=== PATIENT | male | born 1945 | race Asian ===

== ENCOUNTER 2018-12-13 08:39 | Emergency (ER) | payer OTHER ==
[~2018-12-13] VITALS: Ht 182.9 cm; Wt 90.7 kg
--- NOTE | 2018-12-13 08:40 | NUR ---
ED Nurse Note: Pt present to ER with spouse and daughter c/o stroke like symptoms. pt aao x4 and calm and cooperative. skin clean and intact. pt present high blood pressure which is systolic over 200 mmHg as documented and per pt, he stopped taking hypertensive medication for last 3 months to try control blood pressure with exercise only. pt c/o sharp headache / and no dropping on extremites but face appeared asymetric. pt ambulatory and no slurred speach noted at this time.
[2018-12-13] MEDS ORDERED: Solu-MEDROL 125mg Inj IVP ONE (08:45)
[2018-12-13] MEDS ORDERED: Fluorescein Strips RIGHT EYE ONE ×2 (08:45→12:00)
[2018-12-13] MEDS ORDERED: Tetracaine 0.5% Opth 4ml Soln RIGHT EYE ONE (08:45)
[2018-12-13] MEDS ORDERED: LOSARTAN-HCTZ1 EAC2 ORAL (08:46)
[2018-12-13] MEDS ORDERED: METFORMIN500 MG/5 M PO (08:46)
[2018-12-13 08:50] VITALS: BP 204/100
--- NOTE | 2018-12-13 08:58 | Emergency Room Report ---
History of Present Illness General Chief Complaint: Stroke Symptoms Source: Patient Present Illness HPI Patient presents with right-sided facial weakness and numbness that began last night. He also complains about pain in the right eye and also his head. He has a history of hypertension but states he's not been taking medication for this recently. He denies any trauma. There is no fever, nausea, vomiting. The patient denies chest pain or palpitations. Off of BP meds for 2 months. Patient is also diabetic. Allergies: Coded Allergies: No Known Allergies (Unverified , 12/13/18) Patient History Past Medical History: see triage record Social History: Denies: smoking Social History Narrative with family Reviewed Nursing Documentation: PMH: Agreed; PSxH: Agreed Nursing Documentation-PMH Hx Hypertension: Yes - HYPERLIPIDEMIA Hx Diabetes: Yes Review of Systems All Other Systems: negative except mentioned in HPI Physical Exam Vital Signs Date Time Temp Pulse Resp B/P (MAP) Pulse Ox O2 Delivery O2 Flow Rate FiO2 12/13/18 08:41 98.1 72 20 204/100 99 Room Air Sp02 EP Interpretation: reviewed, normal General Appearance: well appearing, no apparent distress, GCS 15 Head: normocephalic Eyes: bilateral eye normal inspection, bilateral eye PERRL, bilateral eye EOMI ENT: moist mucus membranes Neck: supple Respiratory: lungs clear, normal breath sounds Cardiovascular #1: regular rate, rhythm Cardiovascular #2: 2+ radial (R) Gastrointestinal: normal inspection, normal bowel sounds, non tender, non- distended Musculoskeletal: back normal, gait/station normal, normal range of motion Neurologic: alert, oriented x3, motor strength/tone normal - except facial nerve, DTRs symmetric, sensory intact - except facial nerve, cerebellar normal, normal gait, speech normal, other - R facial nerve - weak and decreased sensation Psychiatric: anxious Skin: normal inspection, warm/dry Medical Decision Making Diagnostic Impression: Primary Impression: Jung's palsy Additional Impressions: HTN (hypertension) Qualified Codes: I10 - Essential (primary) hypertension Hyperglycemia Hyponatremia ER Course Patient presents with headache, right facial weakness and numbness and hypertension. Differential includes a Jung's palsy, interested cervical bleed, [place] abrasion, hypertensive urgency amongst others. Evaluation will be with EKG, CT the head and labs. Based on his physical exam a 70 Medrol and acyclovir will be administered. We will check for corneal abrasion. His blood pressure will be monitored. EKG without injury. CXR normal. Labs with mild hyperglycemia, mild hyponatremia. CT no significant IC lesions (see below). Flourecine without corneal uptake. Improved with treatment. BP better with observation. Discussed treatment plan. Patient stable for outpatient observation and treatment. Laboratory Tests Test 12/13/18 09:00 White Blood Count 6.5 K/UL (4.8-10.8) Red Blood Count 5.36 M/UL (4.70-6.10) Hemoglobin 17.0 G/DL (14.2-18.0) Hematocrit 49.0 % (42.0-52.0) Mean Corpuscular Volume 91 FL (80-99) Mean Corpuscular Hemoglobin 31.7 PG (27.0-31.0) H Mean Corpuscular Hemoglobin Concent 34.7 G/DL (32.0-36.0) Red Cell Distribution Width 11.6 % (11.6-14.8) Platelet Count 186 K/UL (150-450) Mean Platelet Volume 9.2 FL (6.5-10.1) Neutrophils (%) (Auto) 68.9 % (45.0-75.0) Lymphocytes (%) (Auto) 21.3 % (20.0-45.0) Monocytes (%) (Auto) 7.1 % (1.0-10.0) Eosinophils (%) (Auto) 1.5 % (0.0-3.0) Basophils (%) (Auto) 1.1 % (0.0-2.0) Prothrombin Time 9.8 SEC (9.30-11.50) Prothrombin Time INR 0.9 (0.9-1.1) PTT 33 SEC (23-33) Urine Color Pale yellow Urine Appearance Clear Urine pH 7 (4.5-8.0) Urine Specific [place] 1.015 (1.005-1.035) Urine Protein 3+ (NEGATIVE) H Urine Glucose (UA) Negative (NEGATIVE) Urine Ketones Negative (NEGATIVE) Urine Blood 1+ (NEGATIVE) H Urine Nitrite Negative (NEGATIVE) Urine Bilirubin Negative (NEGATIVE) Urine Urobilinogen Normal MG/DL (0.0-1.0) Urine Leukocyte Esterase 1+ (NEGATIVE) H Urine RBC 0-2 /HPF (0 - 0) H Urine WBC 2-4 /HPF (0 - 0) Urine Squamous Epithelial Cells Occasional /LPF Urine Bacteria Occasional /HPF (NONE) Sodium Level 133 MMOL/L (136-145) L Potassium Level 3.9 MMOL/L (3.5-5.1) Chloride Level 95 MMOL/L (98-107) L Carbon Dioxide Level 29 MMOL/L (21-32) Anion Gap 9 mmol/L (5-15) Blood Urea Nitrogen 15 mg/dL (7-18) Creatinine 1.0 MG/DL (0.55-1.30) Estimate Glomerular Filtration Rate mL/min (>60) Glucose Level 213 MG/DL (74-106) H Calcium Level 10.1 MG/DL (8.5-10.1) Total Bilirubin 1.4 MG/DL (0.2-1.0) H Direct Bilirubin 0.2 MG/DL (0.0-0.3) Aspartate Amino Transferase (AST) 14 U/L (15-37) L Alanine Aminotransferase (ALT) 24 U/L (12-78) Alkaline Phosphatase 122 U/L (46-116) H Total Creatine Kinase 67 U/L (26-308) Troponin I 0.000 ng/mL (0.000-0.056) Pro-B-Type Natriuretic Peptide 43 pg/mL (0-125) Total Protein 7.9 G/DL (6.4-8.2) Albumin 4.1 G/DL (3.4-5.0) Globulin 3.8 g/dL Albumin/Globulin Ratio 1.1 (1.0-2.7) EKG Diagnostic Results Rate: normal Rhythm: NSR ST Segments: no acute changes - NSTTW changes Rhythm Strip Diag. Results EP Interpretation: yes Rhythm: NSR, no PVC's, no ectopy Chest X-Ray Diagnostic Results Chest X-Ray Diagnostic Results : Chest X-Ray Ordered: Yes # of Views/Limited/Complete: 1 View Indication: Other EP Interpretation: Yes Interpretation: no consolidation, no effusion, no pneumothorax Impression: No acute disease Electronically Signed by: Marcos Irving MD CT/MRI/US Diagnostic Results CT/MRI/US Diagnostic Results : Imaging Test Ordered: head Impression small vessel disease with sinus polyp/chronic disease Last Vital Signs Date Time Temp Pulse Resp B/P (MAP) Pulse Ox O2 Delivery O2 Flow Rate FiO2 12/13/18 12:20 98.2 83 16 159/95 100 Room Air Status: improved Disposition: HOME, SELF-CARE Condition: Improved Scripts Losartan Potassium (Losartan Potassium) 25 Mg Tablet 25 MG PO DAILY, #20 TAB 1 Refill Prov: Marcos Irving MD 12/13/18 Valacyclovir Hcl* (VALTREX*) 500 Mg Tablet 1000 MG ORAL TID, #20 TAB Prov: Marcos Irving MD 12/13/18 Prednisone* (PREDNISONE*) 10 Mg Tablet 10 MG ORAL DAILY, #22 TAB 0 Refills 4 po QD X 2, 3 po QD X 2, 2 po QD X 2, 1 po QD X 4 Prov: Marcos Irving MD 12/13/18 Marcos Irving MD Dec 13, 2018 08:58
[2018-12-13 09:15] LABS: APPEARANCE,URINE CLEAR; BILIRUBIN, URINE NEGATIVE (NEGATIVE); COLOR,URINE PALE YELLOW; GLUCOSE, URINE (UA) NEGATIVE (NEGATIVE); KETONES,URINE NEGATIVE (NEGATIVE); LEUKOCYTE ESTERASE ,URINE 1+ (NEGATIVE); NITRITE,URINE NEGATIVE (NEGATIVE); PH,URINE 7 (4.5-8.0); PROTEIN,URINE 3+ (NEGATIVE); UROBILINOGEN,URINE NORMAL MG/DL (0.0-1.0)
[2018-12-13 09:16] LABS: BASOPHILS % (AUTO) 1.1 % (0.0-2.0); EOSINOPHILS % (AUTO) 1.5 % (0.0-3.0); LYMPHOCYTES % (AUTO) 21.3 % (20.0-45.0); MEAN CORPUSCULAR VOLUME 91 FL (80-99); MONOCYTES % (AUTO) 7.1 % (1.0-10.0); NEUTROPHILS % (AUTO) 68.9 % (45.0-75.0); PLATELET COUNT 186 K/UL (150-450); RED BLOOD COUNT 5.36 M/UL (4.70-6.10); RED CELL DISTRIBUTION WIDTH 11.6 % (11.6-14.8); WHITE BLOOD COUNT 6.5 K/UL (4.8-10.8)
[2018-12-13 09:28] LABS: INR 0.9 (0.9-1.1)
[2018-12-13 09:33] VITALS: BP 157/83
[2018-12-13 09:33] LABS: ANION GAP 9 mmol/L (5-15); BLOOD UREA NITROGEN 15 mg/dL (7-18); CALCIUM 10.1 MG/DL (8.5-10.1); CARBON DIOXIDE 29 MMOL/L (21-32); CHLORIDE 95 MMOL/L (98-107); POTASSIUM 3.9 MMOL/L (3.5-5.1); SODIUM 133 MMOL/L (136-145)
[2018-12-13 09:43] LABS: ALBUMIN 4.1 G/DL (3.4-5.0); ALBUMIN/GLOBULIN RATIO 1.1 (1.0-2.7); ALKALINE PHOSPHATASE 122 U/L (46-116); BILIRUBIN,TOTAL 1.4 MG/DL (0.2-1.0); CREATINE KINASE 67 U/L (26-308)
[2018-12-13 09:58] LABS: ALANINE AMINOTRANSFERASE 24 U/L (12-78); ASPARTATE AMINO TRANSFERASE 14 U/L (15-37); BILIRUBIN,DIRECT 0.2 MG/DL (0.0-0.3)
--- NOTE | 2018-12-13 10:10 | Diagnostic Imaging Report ---
EXAM: XR Chest, 1 View CLINICAL HISTORY: WEAK TECHNIQUE: Frontal view of the chest. COMPARISON: No relevant prior studies available. FINDINGS: Lungs: Unremarkable. Vascularity within normal limits. No consolidation. Pleural space: Unremarkable. No pneumothorax. Heart: Unremarkable. No cardiomegaly. Mediastinum: Unremarkable. Bones/joints: Unremarkable. IMPRESSION: No acute process.
--- NOTE | 2018-12-13 10:15 | Diagnostic Imaging Report ---
EXAM: CT Head Without Intravenous Contrast CLINICAL HISTORY: WEAK TECHNIQUE: Axial computed tomography images of the head/brain without intravenous contrast. CTDI is 70.38 mGy and DLP is 1460 mGy-cm. One or more of the following dose reduction techniques were used: automated exposure control, adjustment of the mA and/or kV according to patient size, use of iterative reconstruction technique. COMPARISON: No relevant prior studies available. FINDINGS: No intracranial hemorrhage, abnormal intra- or extra-axial collections or parenchymal lesions are seen. There are involutional changes with prominence of the sulci, basal cisterns and ventricles. Scattered white matter hypoattenuations are present, likely from small vessel disease. The whitney-white differentiation is preserved. No evidence of mass effect, midline shift, or edema. The osseous structures are unremarkable. Mild ethmoid sinus mucosal thickening. Mucous retention cyst or polyp in the left maxillary sinus. 9.5 mm right posterior scalp nodule. IMPRESSION: 1. No acute intracranial process. 2. Involutional changes with small vessel disease. 3. Chronic paranasal sinus disease.
[2018-12-13] MEDS ORDERED: Tetracaine 0.5% Opth 4ml Soln ONE (11:47)
[2018-12-13] MEDS ORDERED: Fluorescein Strips ONE (11:47)
[2018-12-13] MEDS: Tetracaine 0.5% Opth 4ml Soln RIGHT EYE ONE ×2 (11:54→11:55)
[2018-12-13] MEDS ORDERED: PREDNISONE10 MG ORAL (12:12)
[2018-12-13] MEDS ORDERED: VALACYCLOVIR500 MG ORAL (12:12)
[2018-12-13] MEDS ORDERED: LOSARTAN POTASS25 M1 PO (12:12)
[2018-12-13 12:20] VITALS: BP 159/95
--- NOTE | 2018-12-13 12:20 | NUR ---
ED Nurse Note: pt cleared to be d/c per ERMD, pt discharge and aftercare instruction provided w/ prescription, pt education done via discussion and handout, pt advised to follow up with pcp or return to ed if sx worsen or new sx develop, pt iv d/c and id band removed, pt verbalized understanding and agrees with plan, vss, ambulatory w/ steady gait, left w/ all belongings, pt accompanied by family.
--- NOTE | 2018-12-14 19:41 | Cardiology Report ---
APPROVED REPORT EKG Measurement Heart [id number] Normal sinus rhythm Cannot rule out Anterior infarct, age undetermined Abnormal ECG
== END 2018-12-13 12:45 | disposition home or self-care (01) ==
LOC: EMR 08:52
DX: G51.0 Bell's palsy (principal); I10 Essential (primary) hypertension; E87.1 Hypo-osmolality and hyponatremia; E11.65 Type 2 diabetes mellitus with hyperglycemia; E78.5 Hyperlipidemia, unspecified; I73.9 Peripheral vascular disease, unspecified; J32.9 Chronic sinusitis, unspecified
CPT/HCPCS: 36415; 70450; 71045; 80053; 81003; 82248; 82550; 83880; 84484; 85025; 85610; 85730; 93005; 96374; 99284; J2930